=== PATIENT | male | born 1970 | race African-American/Black ===

== ENCOUNTER 2022-10-31 22:42 | Inpatient (IN) | payer OTHER ==
[2022-11-01] MEDS ORDERED: Ondansetron ODT 4 MG TAB PO PRN (00:22)
[2022-11-01] MEDS ORDERED: Calcium Carbonate 500 MG ChewTAB PO PRN (00:22)
[2022-11-01] MEDS ORDERED: Acetaminophen 325 MG TAB PO PRN (00:22)
[2022-11-01] MEDS ORDERED: Electrolyte Replacement Protocol 1 EACH FS SCH (00:26)
[2022-11-01] MEDS ORDERED: niCARdipine 25 MG in Sodium Chloride 0.9% 250 ML 250 ML IVPB PRN ×2 (00:29→01:17)
[2022-11-01] MEDS ORDERED: Multivitamins, Adult 10 ML, Folic Acid 1 MG, Thiamine HCl 100 MG in Dextrose 5 %-0.45 %... IV SCH (00:30)
[2022-11-01] MEDS ORDERED: Amlodipine 10 MG TAB PO SCH ×2 (00:30→11:45)
[2022-11-01] MEDS ORDERED: Nitroglycerin 0.4 MG TAB (25 Tab Bottle) SL PRN (00:33)
[2022-11-01 00:41] VITALS: BMI 27.6
[2022-11-01] MEDS: Nicotine 14 MG PATCH TD SCH (00:58)
[2022-11-01] MEDS ORDERED: Albuterol 200 PUFF (6.7GM INHALER) INH PRN (01:02)
[2022-11-01] MEDS ORDERED: Benzonatate 100 MG CAP PO PRN (01:03)
[2022-11-01] MEDS ORDERED: Guaifenesin DM 100-10/5 ML UDCUP PO PRN (01:03)
[2022-11-01] MEDS ORDERED: hydrALAZINE 20 MG/ML VIAL SLOW IVP PRN (01:29)
[2022-11-01 01:41] LABS: Anion Gap 16 mmol/L (10-20); BUN (Urea Nitrogen) 12 mg/dL (8.4-25.7); Calc. Creatinine Clearance 72 mL/min (70-130); Calcium 9.6 mg/dL (7.8-10.44); Carbon Dioxide 20 mmol/L (22-29); Chloride 100 mmol/L (98-107); Estimated GFR 72; Glucose 115 mg/dL (70-105); Magnesium 2.1 mg/dL (1.6-2.6); Potassium 4.1 mmol/L (3.5-5.1); Sodium 132 mmol/L (136-145)
[2022-11-01 01:43] LABS: Cardiac Risk 3.7 (Less than 4.5); Cholesterol 202 mg/dl (< 200 Desired); HDL Cholesterol 55 mg/dL (>60 Neg Risk); LDL Cholesterol, Calculated 126 mg/dL; Phosphorus 2.9 mg/dL (2.3-4.7); Triglycerides 103 mg/dL (Less than 150)
[2022-11-01 01:45] LABS: Troponin I 0.056 ng/mL (< 0.028)
[2022-11-01 02:13] LABS: Cocaine Metabolite Screen Not Detected (NotDetected); Phencyclidine (PCP) Not Detected (NotDetected); THC/Cannabinoid Screen Not Detected (NotDetected)
[2022-11-01 02:14] LABS: Amphetamine Not Detected (NotDetected); Barbiturates Screen Not Detected (NotDetected); Benzodiazepine Screen Not Detected (NotDetected); Methadone Not Detected (NotDetected); Methamphetamine Not Detected (NotDetected); Opiate Screen Not Detected (NotDetected); Oxycodone Screen Not Detected (NotDetected); Tricyclic Screen Not Detected (NotDetected)
[2022-11-01] MEDS: Folic Acid 1 MG TAB PO SCH (09:16)
[2022-11-01] MEDS: Aspirin 81 mg Enteric Coated Tablet PO SCH (09:16)
[2022-11-01] MEDS: Famotidine 20 MG TAB PO SCH ×2 (09:16→21:47)
[2022-11-01] MEDS: Thiamine 100 MG TAB PO SCH (09:16)
[2022-11-01] MEDS: hydrALAZINE 20 MG/ML VIAL SLOW IVP PRN ×4 (11:16→21:47)
[2022-11-01] MEDS ORDERED: Labetalol HCl 100 MG/20 ML VIAL SLOW IVP PRN (11:20)
[2022-11-01] MEDS: Carvedilol 6.25 MG TAB PO SCH (16:04)
[2022-11-02] MEDS: Nicotine 14 MG PATCH TD SCH (00:13)
[2022-11-02 04:43] LABS: #Eosinphils 0.2 thou/uL (0.0-0.7); #Lymphocytes 1.1 thou/uL (1.20-3.40); #Monocytes 0.7 thou/uL (0.11-0.59); #Neutrophils 4.5 thou/uL (1.40-6.50); %Basophils 0.7 % (0.0-1.0); %Eosinophils 3.5 % (0.0-10.0); %Lymphocytes 16.8 % (21.0-51.0); %Monocytes 10.2 % (0.0-10.0); %Neutrophils 68.8 % (42.0-75.0); Hemoglobin 14.2 g/dL (14.0-18.0); Mean Corpuscular HGB CONC 33.6 g/dL (32.0-36.0); Mean Corpuscular Hemoglobin 34.1 pg (27.0-31.0); Mean Platelet Volume 8.7 fL (7.4-10.4); Platelet Count 162 10x3/uL (130-400); RBC Distribution Width 13.2 % (11.5-14.5); Red Blood Cell (RBC) Count 4.16 mill/uL (4.70-6.10); White Blood Cell (WBC) Count 6.6 10x3/uL (4.8-10.8)
[2022-11-02 05:02] LABS: Anion Gap 12 mmol/L (10-20); BUN (Urea Nitrogen) 12 mg/dL (8.4-25.7); Calc. Creatinine Clearance 64 mL/min (70-130); Carbon Dioxide 22 mmol/L (22-29); Chloride 100 mmol/L (98-107); Estimated GFR 63; Glucose 104 mg/dL (70-105); Potassium 3.8 mmol/L (3.5-5.1); Sodium 130 mmol/L (136-145)
[2022-11-02] MEDS: Carvedilol 6.25 MG TAB PO SCH ×2 (08:30→16:26)
[2022-11-02] MEDS: Aspirin 81 mg Enteric Coated Tablet PO SCH (08:30)
[2022-11-02] MEDS: Famotidine 20 MG TAB PO SCH ×2 (08:31→21:01)
[2022-11-02] MEDS: Thiamine 100 MG TAB PO SCH (08:31)
[2022-11-02] MEDS: Folic Acid 1 MG TAB PO SCH (08:31)
[2022-11-02] MEDS: Amlodipine 10 MG TAB PO SCH (08:31)
[2022-11-02] MEDS ORDERED: Carvedilol 6.25 MG TAB PO SCH ×2 (10:07→10:45)
[2022-11-02] MEDS: hydrALAZINE 25 MG TAB PO SCH ×2 (14:52→21:01)
[2022-11-03] MEDS: Nicotine 14 MG PATCH TD SCH (01:03)
[2022-11-03 05:14] LABS: #Eosinphils 0.3 thou/uL (0.0-0.7); #Lymphocytes 1.2 thou/uL (1.20-3.40); #Monocytes 0.6 thou/uL (0.11-0.59); #Neutrophils 3.7 thou/uL (1.40-6.50); %Basophils 0.1 % (0.0-1.0); %Eosinophils 4.7 % (0.0-10.0); %Lymphocytes 20.9 % (21.0-51.0); %Monocytes 10.9 % (0.0-10.0); %Neutrophils 63.4 % (42.0-75.0); Hemoglobin 14.2 g/dL (14.0-18.0); Mean Corpuscular HGB CONC 32.9 g/dL (32.0-36.0); Mean Corpuscular Hemoglobin 33.5 pg (27.0-31.0); Mean Platelet Volume 8.8 fL (7.4-10.4); Platelet Count 164 10x3/uL (130-400); RBC Distribution Width 13.1 % (11.5-14.5); Red Blood Cell (RBC) Count 4.23 mill/uL (4.70-6.10); White Blood Cell (WBC) Count 5.8 10x3/uL (4.8-10.8)
[2022-11-03 05:31] LABS: Anion Gap 14 mmol/L (10-20); BUN (Urea Nitrogen) 14 mg/dL (8.4-25.7); Calc. Creatinine Clearance 65 mL/min (70-130); Calcium 9.1 mg/dL (7.8-10.44); Carbon Dioxide 20 mmol/L (22-29); Chloride 99 mmol/L (98-107); Estimated GFR 64; Glucose 97 mg/dL (70-105); Potassium 4.1 mmol/L (3.5-5.1); Sodium 129 mmol/L (136-145)
[2022-11-03] MEDS: hydrALAZINE 25 MG TAB PO SCH ×3 (09:33→20:01)
[2022-11-03] MEDS: Carvedilol 6.25 MG TAB PO SCH (09:33)
[2022-11-03] MEDS: Aspirin 81 mg Enteric Coated Tablet PO SCH (09:34)
[2022-11-03] MEDS: Folic Acid 1 MG TAB PO SCH (09:34)
[2022-11-03] MEDS: Thiamine 100 MG TAB PO SCH (09:34)
[2022-11-03] MEDS: Famotidine 20 MG TAB PO SCH ×2 (09:34→20:00)
[2022-11-03] MEDS: Amlodipine 10 MG TAB PO SCH (09:37)
[2022-11-03] MEDS: Carvedilol 25 MG TAB PO SCH (16:25)
[2022-11-04] MEDS: Nicotine 14 MG PATCH TD SCH (00:10)
[2022-11-04 05:22] LABS: Anion Gap 13 mmol/L (10-20); BUN (Urea Nitrogen) 15 mg/dL (8.4-25.7); Calc. Creatinine Clearance 61 mL/min (70-130); Carbon Dioxide 22 mmol/L (22-29); Chloride 98 mmol/L (98-107); Estimated GFR 59; Glucose 98 mg/dL (70-105); Potassium 3.8 mmol/L (3.5-5.1); Sodium 129 mmol/L (136-145)
[2022-11-04 07:58] VITALS: TEMP 98.2
[2022-11-04 08:10] VITALS: BP 168/94
[2022-11-04] MEDS: Thiamine 100 MG TAB PO SCH (10:04)
[2022-11-04] MEDS: Folic Acid 1 MG TAB PO SCH (10:05)
[2022-11-04] MEDS: hydrALAZINE 25 MG TAB PO SCH (10:05)
[2022-11-04] MEDS: Aspirin 81 mg Enteric Coated Tablet PO SCH (10:06)
[2022-11-04] MEDS: Famotidine 20 MG TAB PO SCH (10:06)
[2022-11-04] MEDS: Amlodipine 10 MG TAB PO SCH (10:06)
[2022-11-04] MEDS: Carvedilol 25 MG TAB PO SCH (10:06)
== END 2022-11-04 12:20 | disposition home or self-care (01) | DRG 305 ==
LOC: CCU 22:42 → 2NO 11-01 13:20
PROVIDERS: ADMIT Student in an Organized Health Care Education/Training Program; ATTEND Hospitalist
DX: I16.0 Hypertensive urgency (principal); I24.8 Other forms of acute ischemic heart disease; E87.1 Hypo-osmolality and hyponatremia; I16.1 Hypertensive emergency; N17.9 Acute kidney failure, unspecified; R73.9 Hyperglycemia, unspecified; F10.10 Alcohol abuse, uncomplicated; Z20.822 Contact with and (suspected) exposure to COVID-19; F17.210 Nicotine dependence, cigarettes, uncomplicated; J06.9 Acute upper respiratory infection, unspecified; Z98.890 Other specified postprocedural states; Z79.899 Other long term (current) drug therapy
CPT/HCPCS: 36415; 80048; 80061; 80306; 83735; 84100; 84484; 85025; 93005; 93010; 93306; 94760; J0360; J1650; J3411; J7042; J7050